=== PATIENT | male | born 1960 | race Caucasian/White ===

== ENCOUNTER 2018-04-07 08:47 | Emergency (ER) | payer MEDICARE, OTHER ==
[~2018-04-07] VITALS: Ht 175.3 cm; Wt 93.9 kg
[~2018-04-07 08:47] MED LIST: ASPI-612 PO; BUPR100T4 PO; CLON2TAB PO; QUET300T2 PO
--- NOTE | 2018-04-07 08:54 | NUR ---
PT A/OX4, PRESENTS TO THE ER C/O RECTAL PAIN. PT REPORTS HX OF HEMORRHOIDS AND THE PAIN WORSENED THIS AM AFTER A BM, PRESSURE-LIKE PAIN, DOES NOT RADIATE, 8/10, CONSTANT. PT IS HYPERTENSIVE. ER MD AWARE. PT DENIES C/P, SOB, N/V/D, DIZZINESS, HEADACHE.
[2018-04-07 09:06] VITALS: BP 146/92
--- NOTE | 2018-04-07 09:06 | NUR ---
Patient discharged to home in stable conditon. Written and verbal after care instructions given. Patient verbalizes understanding of instructions. PT D/C W/ PRESCRIPTIONS. ALL BELONGINGS W/ PT. PT SELF-AMBULATED W/O DIFFICULTY.
== END 2018-04-07 09:07 | disposition home or self-care (01) ==
LOC: ER 08:47
DX: K64.9 Unspecified hemorrhoids (principal); F17.200 Nicotine dependence, unspecified, uncomplicated; Z88.0 Allergy status to penicillin; Z90.49 Acquired absence of other specified parts of digestive tract; Z79.82 Long term (current) use of aspirin; Z79.899 Other long term (current) drug therapy
CPT/HCPCS: A4663

== ENCOUNTER 2021-07-23 13:32 | Emergency (ER) | payer OTHER ==
[~2021-07-23] VITALS: Ht 165.1 cm; Wt 79.4 kg
--- NOTE | 2021-07-23 13:55 | NUR ---
at bedside exam in progress.
[2021-07-23] MEDS ORDERED: CYCLOBENZAPRINE HCL 10 MG TABLET ONE (14:10)
[2021-07-23] MEDS ORDERED: NAPROXEN 500 MG TABLET ONE (14:11)
[2021-07-23] MEDS ORDERED: CYCLOBENZAPRINE HCL 10 MG TABLET PO ONE (14:15)
[2021-07-23] MEDS ORDERED: NAPROXEN 500 MG TABLET PO ONE (14:15)
--- NOTE | 2021-07-23 14:21 | NUR ---
PT MEDICATED PER MD ORDERS.
[2021-07-23] MEDS ORDERED: NAPR-1192 PO (15:38)
[2021-07-23] MEDS ORDERED: CYCL5TAB PO (15:38)
[2021-07-23] MEDS ORDERED: OXYC5TAB3 PO (15:38)
--- NOTE | 2021-07-23 15:45 | NUR ---
DCD instructions given to pt. who verbalized understanding.
--- NOTE | 2021-07-23 15:46 | NUR ---
pt. left room AAOx4. no c/of pain
--- NOTE | 2021-07-23 15:47 | NUR ---
DCD instructions given to pt. who verbalized understanding. Pt. left room AAOX4. no c/of pain
== END 2021-07-23 15:51 | disposition home or self-care (01) ==
LOC: ER 13:32
DX: M54.9 Dorsalgia, unspecified (principal); M62.830 Muscle spasm of back; F25.9 Schizoaffective disorder, unspecified; Z88.0 Allergy status to penicillin; Z79.2 Long term (current) use of antibiotics; Z79.899 Other long term (current) drug therapy
CPT/HCPCS: A4663

== ENCOUNTER 2021-10-21 11:59 | Emergency (ER) | payer OTHER ==
[~2021-10-21] VITALS: Ht 167.6 cm; Wt 77.1 kg
[~2021-10-21 11:59] MED LIST changes: +CYCL5TAB PO; +NAPR-1192 PO; +OXYC5TAB3 PO
[2021-10-21] MEDS ORDERED: ACETAMINOPHEN 325 MG TABLET ONE (13:25)
[2021-10-21] MEDS ORDERED: ACETAMINOPHEN 325 MG TABLET PO ONE (13:30)
[2021-10-21] MEDS ORDERED: EMOL85CR2 TOP (14:20)
[2021-10-21] MEDS ORDERED: ACET-2154 PO (14:20)
--- NOTE | 2021-10-21 14:20 | NUR ---
Patient refused orthopedic splint.
--- NOTE | 2021-10-21 14:23 | NUR ---
Patient discharged to home in stable condition. Verbal after care instructions given. Patient verbalizes understanding of instructions. Stressed follow up or return to ER for worsening s/s.
[2021-10-21 14:24] VITALS: BP 110/82
== END 2021-10-21 14:26 | disposition home or self-care (01) ==
LOC: ER 11:59
DX: M23.92 Unspecified internal derangement of left knee (principal); S80.212A Abrasion, left knee, initial encounter; W10.1XXA Fall (on)(from) sidewalk curb, initial encounter; Y93.01 Activity, walking, marching and hiking; Y92.89 Other specified places as the place of occurrence of the external cause; F25.9 Schizoaffective disorder, unspecified; E78.00 Pure hypercholesterolemia, unspecified; Z79.82 Long term (current) use of aspirin; Z79.899 Other long term (current) drug therapy
CPT/HCPCS: A4663